=== PATIENT | male | born 1960 | race Caucasian/White ===

== ENCOUNTER → 2016-04-30 | Outpatient (CLI) | payer OTHER ==
[2016-04-30 15:09] LABS: BASO % 0.9 %; BASO ABS # 0.05 K/uL (0-0.2); COMPLETE YES; EOS % 2.2 %; HEMATOCRIT 46.1 % (42-52); IG% 0.5 %; LYMPH % 31.1 %; LYMPH ABS # 1.81 K/uL (1.2-3.4); MEAN CELL VOLUME 88.3 fL (80-100); MEAN CORPUSCULAR HEMOGLOBIN 31.2 pg (25-34); MEAN CORPUSCULAR HGB CONC 35.4 g/dl (32-36); MEAN PLATELET VOLUME 11.1 fL (7.4-10.4); MONO % 6.7 %; NEUT % 58.6 %; PLATELET COUNT 230 K/uL (130-400); RED BLOOD COUNT 5.22 M/uL (4.7-6.1); WHITE BLOOD COUNT 5.82 K/uL (4.8-10.8)
[2016-04-30 15:18] LABS: ALT/SGPT 62 U/L (12-78); AST/SGOT 38 U/L (15-37); BLOOD UREA NITROGEN 14 mg/dl (7-18); BUN/CREATININE RATIO 14.2 (10-20); CALCIUM 8.5 mg/dl (8.5-10.1); CARBON DIOXIDE 31 mmol/L (21-32); CHLORIDE 100 mmol/L (98-107); GLUCOSE 102 mg/dl (70-99); POTASSIUM 4.7 mmol/L (3.5-5.1); SODIUM 138 mmol/L (136-145)
[2016-04-30 15:27] LABS: ALB/GLOB RATIO 1.4 (0.9-2); ALKALINE PHOSPHATASE 67 U/L (45-117); CHOLESTEROL 190 mg/dl (0-200); CHOLESTEROL/HDL RATIO 4.2; HDL CHOLESTEROL 45 mg/dl; THYROID STIMULATING HORMONE 0.191 uIu/ml (0.300-4.500); TRIGLYCERIDES 234 mg/dl (0-150); VERY LOW DENSITY LIPOPROT CALC 47 mg/dl
[2016-05-01 07:35] LABS: ESTIMATED AVERAGE GLUCOSE 126 mg/dl; HA1C FLAG Normal (Normal)
== END | disposition home or self-care (01) ==
LOC: C.LABSPEC 14:45
PROVIDERS: ATTEND Internal Medicine
DX: I10 Essential (primary) hypertension (principal); E78.5 Hyperlipidemia, unspecified; R73.9 Hyperglycemia, unspecified; E03.9 Hypothyroidism, unspecified; R53.83 Other fatigue

== ENCOUNTER → 2016-06-25 | Outpatient (CLI) | payer OTHER ==
[~2016-06-25] VITALS: Ht 188 cm; Wt 121.6 kg
[2016-06-25 12:28] VITALS: BP 138/88; PULSE 57; Ht 188 cm; Wt 121.6 kg
== END | disposition home or self-care (01) ==
LOC: C.NEUR 11:50
PROVIDERS: ATTEND Physician Assistant Medical
DX: R40.0 Somnolence (principal); R06.83 Snoring; G47.8 Other sleep disorders

== ENCOUNTER → 2016-07-08 | Outpatient (CLI) | payer OTHER ==
--- NOTE | 2016-07-12 08:53 | POLYSOMNOGRAPH REPORT ---
CLINICAL DATA: A 56-year-old male with BMI of 34.[address] Watkins, Lakshmi Cheng and myself for evaluation of symptoms of snoring and witnessed apnea. He is tired, does not feel rested in the morning and is unable to sleep more than 4-5 hours per night. On the evening of 07/08/2016, a home sleep apnea was performed using a [employer] type 3 monitor. RECORDING RESULTS: Total recording time was 10 hours. The patient's monitoring time and estimated sleep time was 7.6 hours. RESPIRATORY DATA: Moderate sleep apnea was documented. The CEHSTER was 22.2. There were 14 obstructive and 1 central apneic episode. There were 153 hypopneic episodes. The longest respiratory event recorded was 56 seconds. OXIMETRY DATA: Nocturnal hypoxemia was seen. Oxygen abby was 76%. Mean saturation was 90%. Time below 89% was 132 minutes. HEART RATE DATA: Heart rates ranged from 54 to 65 beats per minute. SNORING DATA: Snoring was recorded throughout the night. IMPRESSION: Moderate sleep apnea/hypopnea with nocturnal hypoxemia. RECOMMENDATIONS: The patient may benefit from a repeat sleep study with CPAP or use of an oral appliance. MTDD
== END | disposition home or self-care (01) ==
LOC: C.NEUR 10:21
PROVIDERS: ATTEND Physician Assistant Medical
DX: R40.0 Somnolence (principal); R06.83 Snoring; G47.8 Other sleep disorders

== ENCOUNTER → 2016-10-22 | Outpatient (CLI) | payer OTHER ==
--- NOTE | 2016-10-23 06:19 | PAP/PSG TECHNICIAN REPORT ---
[facility] Epidemiology Internship Polysomnogram Report Study name: None Report date: 10/23/2016 Study date: 10/22/2016 Referring Physician: Lakshmi Cheng PA-C Name: FANY HUNG Interpreting Physician: Emeterio Short M.D. Date of : 1960 Epidemiology Internship: Estefania Valdes RPSGT. Sex: Male Age: 56 Study Type: PSG PAP Weight: 269 lbs 16.5 in Height: 56 years, Height 6' 2" Neck Circum: BMI: 34.53 Medications: ATENOLOL 50 MG, ATORVASTATIN 10 MG, LATANOPROST 0.005% OPH SOLN, LEVOTHYROXINE 175 MCG, OMEPRAZOLE 20 MG Patient History 56 yr-old male here for a new CPAP treatment study. He was found to be positive for VIGNESH via a home sleep study. His AHI was 22.2. He chose a John FX nasal pillows mask size large from [employer]. The test was started on room air and 4 CMH2O. ETCO2 testing was not utilized during this study. Room 1 Parameters Monitored NPSG: E1-M2, E2-M1, Fp1-M2, Fp2-M1, F3-M2, F4-M2, F4-M1, C3-M2, C4-M2, C4-M1, O1-M2, O2-M2, O2-M1, T3-M2, T4-M1, P3-M2, P4-M1, CHIN1, CHIN2, HR, EKG, Legs, PFLOW, SNOR, FLOW, CFLOW, Tidal Volume, THOR, ABDO, SpO2, PLTH, CPRESS, ETCO2 Wave, ETCO2, pH Sleep Architecture Sleep Stages Time at Lights Off 10:17:37 PM STAGES Time (min.) TST (%) Time at Lights On 5:40:07 AM Wake 156.0 -- Total Recording Time (TRT) 442.50 min. N1 45.5 16 Total Sleep Period (TSP) 431.5 min. N2 171.5 60 Total Sleep Time (TST) 286.5min. N3 0.0 0 Awake Time 156.0 min. REM 69.5 24 Wake after Sleep Onset 147.0 min. Sleep Efficiency (SE) 65 % Sleep Onset Latency (ELISA) 9.0 min. Number of Stage 1 Shifts None Awakenings 31 Stage Changes 117 Number of REM periods 7 REM 69.5 24 REM Latency 120.5 min. NREM 217.0 76 Body Position Analysis Supine Right Left Side Prone Vertical Total Sleep Time (min.) 89.8 185.0 100.0 285.00 0.0 0.0 Total Sleep Time (%) 1% 65% 35% 99 0% N/A% Total Sleep Time REM (min.) 0.0 60.5 9.0 None 0.0 0.0 Total Sleep Time NREM (min.) 1.5 124.5 91.0 None 0.0 0.0 Intermittent Wake (min.) 88.3 45.3 22.4 None 0.0 0.0 Total Sleep Period (%) 19% None None None None None Arousals Myoclonus (PLM) * Events Count Index Events Count Index Spontaneous 33 7 Events Awake (PLMW) 199 76.5 Respiratory 11 2.5 Events Asleep w/ Arousal (PLMA) 36 7.5 PLM 36 8 Events Asleep w/o Arousal (PLMS) 323 67.6 Snoring 0 0 Total Asleep 359 75.2 Total 80 17 Total 558 76 Respiratory Analysis * CA OA MA CH H RERA Total Count 0 0 0 0 25 2 25 Index 0.0 0.0 0.0 0 5.2 0 5.7 Mean Duration 0.0 0.0 0.0 0.00 18.5 16.1 18.3 Longest Duration 0.0 0.0 0.0 0.00 0.0 16.6 26.6 Respiratory Event Summary Total Supine ~Supine Right Left Prone REM NREM Apneas Count 0 0 0 0 0 N/A 0 0 Index 0.0 0 0 0.0 0.0 N/A 0 0 Hypopneas (4% Desat) Count 25 1 24 12 12 N/A 9 16 Index 5.2 40.0 5 3.9 7.2 N/A 7.8 4.4 Apneas & All Hypopneas Count 25 1 24 12 12 N/A 9 16 Index 5.2 40 5 4 7 N/A 7.8 4.4 Respiratory Events (Aluminum Sheet Cutter+All Hyp+RERA) Count 25 1 26 13 13 N/A 9 16 Index 5.7 40 5 4.2 7.8 N/A 8.6 4.7 Respiratory Related Arousal Count 11 1 11 7 4 N/A 2 10 Index 2.5 40 2 2 2 N/A 2 3 Snoring Analysis Supine Right Left Prone REM NREM Total Snore duration 1.2 min Snores count 0 6 12 N/A 4 14 18 Snore mean duration 4.0 Sec Snores index 0 2 7 N/A 3.5 3.9 3.8 TST with snoring (%) 0.4% Desaturation Event Summary: Minimum %SpO2 Event Count Mean/Min/Max Duration(sec.) Desaturation Index % Time In Bed > 90 62 27.7 / 5.3 / 58.3 8.9 96.8 86 - 90 2 16.0 / 15.8 / 16.3 8.8 3.2 81 - 85 0 N/A 0.0 0.0 76 - 80 0 N/A 0.0 0.0 71 - 75 0 N/A 0.0 0.0 66 - 70 0 N/A 0.0 0.0 61 - 65 0 N/A 0.0 0.0 56 - 60 0 N/A 0.0 0.0 51 - 55 0 N/A 0.0 0.0 < 50 0 N/A 0.0 0.0 Total REM NREM Awake <50% 0.0 min. 0.0 min. 0.0 min. 0.0 min. 51 - 60% 0.0 min. 0.0 min. 0.0 min. 0.0 min. 61 - 70% 0.0 min. 0.0 min. 0.0 min. 0.0 min. 71 - 80% 0.0 min. 0.0 min. 0.0 min. 0.0 min. 81 - 90% 13.9 min. 5.6 min. 4.2 min. 4.0 min. 91 - 100% 416.8 min. 63.8 min. 212.3 min. 140.8 min. Average 94 93 94 95 Minimum SpO2 79 87 88 79 Desaturation Event Index 8.4 9.5 6.6 11.2 # Desat. Events below 89% 7 2 2 3 Time(%) with Saturation below 89% 0.3 0.1 0.0 0.2 Time(min.) with Saturation below 89% 1.3 0.4 0.2 0.7 Time (mins) REM (mins) NREM (mins) % of TST SpO2 Below 90% 16 8 N8 1.1 SpO2 Below 88% 1 0 0 0 Heart Rate Analysis Min (bpm) Max (bpm) Average (bpm) Awake 47 83 59 NREM 44 127 54 REM 47 64 54 Overall 44 127 54 Supplemental O2 Values Minimum O2 level: None Value Start Time End Time Epidemiology Internship Comments Mr. Hung slept in the right, left, and supine positions. No cardiac arrhythmias were noted. PLMs were noted throughout the study. No bruxism noted. CPAP was initiated at +4 CMH2O and up-titrated to a level of +8 CMH2O, Cflex 2. A John FX nasal pillows mask size large from [employer] [facility] was used during titration He awoke to use the restroom two times during the night. Mr. Hung stated that he is unsure of how he slept. The final report will be interpreted and signed by a sleep physician. The completed physician report will then be placed in the patient medical record. Therapy Event: Therapy (cm H20) 4 5 7 8 Total Time at Pressure (min.) 95.8 101.6 199.1 46.0 TST at Pressure (min.) 13.8 80.6 149.6 42.5 # Periods 1 1 1 1 Sleep Onset (min.) 9.0 0.0 0.0 0.0 REM Onset (min.) N/A 33.7 2.6 22.0 Sleep Efficiency % 14 79 75 92 Wakefulness (%) 85.6 20.7 24.9 7.6 Wakefulness (min.) 82.0 21.0 49.5 3.5 NREM 1 (%) 5.2 9.4 12.1 15.2 NREM 1 (min.) 5.0 9.5 24.0 7.0 NREM 2 (%) 9.2 67.0 37.7 42.4 NREM 2 (min.) 8.8 68.1 75.1 19.5 NREM 3 (%) 0.0 0.0 0.0 0.0 NREM 3 (min.) 0.0 0.0 0.0 0.0 REM (%) 0.0 3.0 25.4 34.8 REM (min.) 0.0 3.0 50.5 16.0 # Arousals 8 26 38 8 Arousal Index 34.7 19.4 15.2 11.3 # Snore 1 10 6 1 Snore Index 4.3 7.4 2.4 1.4 AHI 17.3 7.4 4.0 1.4 AHI Supine 0.0 N/A 60.0 N/A AHI Non-Supine 18.0 7.4 3.6 1.4 NREM AHI 17.3 7.0 1.8 0.0 REM AHI N/A 20.0 8.3 3.8 RDI 17.3 8.2 4.4 1.4 # Obstructive 0 0 0 0 # Central Ap 0 0 0 0 # Mixed 0 0 0 0 # Hypopneas 4 10 10 1 RERAS 0 1 1 0 Total Respiratory Events 4 11 11 1 Time Below SpO2 89.00% (min.) 0.0 0.4 0.2 0.0 Mean NREM SpO2 (%) 92 93 94 95 Mean REM SpO2 (%) N/A 91 92 94 Mean Sleep SpO2 (%) 92 93 93 95 Min NREM SpO2 (%) 88 88 89 91 Min REM SpO2 (%) N/A 87 88 91 Position Supine (min.) 0.5 0.0 1.0 0.0 Position Non-supine (min.) 13.3 80.6 148.6 42.5 LM Index Sleep 26.0 125.1 48.9 88.9 LM Index NREM 26.0 127.6 69.6 115.4 LM Index REM N/A 60.0 8.3 45.0 Mean Heart Rate (bpm) 57 55 54 52 Min Heart Rate (bpm) 52 50 44 45
--- NOTE | 2016-10-23 16:59 | POLYSOMNOGRAPH REPORT ---
CLINICAL DATA: A 56-year-old male with BMI of 34.5 referred by Lakshmi Cheng, myself and Dr. Watkins for a CPAP titration study. He was having problems with snoring, fatigue, and witnessed apnea. He had a home sleep apnea test which showed moderate sleep apnea with an CHESTER of 22.2. He used a John FX nasal pillow size large from [employer] during this study. SLEEP ARCHITECTURE: Total recording time was 442.5 minutes. Total sleep period was 431.5 minutes. Total sleep time was 286.5 minutes divided between 217 minutes of non-REM sleep and 69.5 minutes of REM sleep. Sleep onset latency was 9 minutes. REM latency was 120.5 minutes. Sleep efficiency was 65%. Wake after sleep onset was elevated at 147 minutes. Sleep consisted of stage N1 16%, stage N1 60%, and REM 24%. AROUSAL DATA: Eighty arousals were recorded for an index of 17 per hour. Thirty-two were spontaneous arousals. Thirty-six occurred due to PLMs. PLM DATA: Severely elevated limb movements during sleep were noted. There were 359 limb movements during sleep noted for an index of 75.2 per hour with arousal index of 7.5 per hour. RESPIRATORY DATA: The AHI was 5.2. There were 25 hypopneas with a mean duration of 18.5 seconds. OXIMETRY DATA: Very transient hypoxemia was seen. Oxygen abby was 87% during REM. The mean saturation was 94%. Time below 88% was 1 minute. EKG: Heart rates ranged from 44-127 beats per minute. No arrhythmias were noted. CHIPS SCREEN TENDER'S COMMENTS AND TREATMENT SUMMARY: The patient slept in the right, left, and supine positions. PLMs were noted throughout this study. CPAP was initiated using a John FX nasal pillows size large from [employer]. The patient was titrated up to 8 cm of water pressure, C-Flex 2. At this final pressure, he slept for 42.5 minutes with an AHI of 1.4. IMPRESSION: Moderate sleep apnea/hypopnea corrected with CPAP 8 cm of water pressure, C-Flex setting #2 utilizing a John FX nasal pillows mask size large from [employer]. The patient continued to have PLMD in spite of treatment. RECOMMENDATIONS: The patient should be started on the above noted treatment regimen and seen back in followup within 90 days to document efficacy and compliance. If he continues to have sleep issues, consideration of treatment for PLMD could be considered. MTDD
== END | disposition home or self-care (01) ==
LOC: C.NEUR 21:00
PROVIDERS: ATTEND Internal Medicine Pulmonary Disease
DX: G47.33 Obstructive sleep apnea (adult) (pediatric) (principal)

== ENCOUNTER → 2016-10-29 | Outpatient (CLI) | payer OTHER ==
[2016-10-29 13:07] LABS: ESTIMATED AVERAGE GLUCOSE 126 mg/dl; HA1C FLAG Normal (Normal)
[2016-10-29 13:11] LABS: BLOOD UREA NITROGEN 16 mg/dl (7-18); BUN/CREATININE RATIO 16.3 (10-20); CALCIUM 8.2 mg/dl (8.5-10.1); CARBON DIOXIDE 28 mmol/L (21-32); CHLORIDE 104 mmol/L (98-107); CHOLESTEROL 153 mg/dl (0-200); GLUCOSE 105 mg/dl (70-99); POTASSIUM 4.3 mmol/L (3.5-5.1); SODIUM 137 mmol/L (136-145); TRIGLYCERIDES 153 mg/dl (0-150); VERY LOW DENSITY LIPOPROT CALC 31 mg/dl
[2016-10-29 13:21] LABS: CHOLESTEROL/HDL RATIO 3.3; HDL CHOLESTEROL 47 mg/dl
== END | disposition home or self-care (01) ==
LOC: C.LABSPEC 12:21
PROVIDERS: ATTEND Internal Medicine
DX: E03.9 Hypothyroidism, unspecified (principal); E78.5 Hyperlipidemia, unspecified; R73.9 Hyperglycemia, unspecified

== ENCOUNTER → 2017-05-01 | Outpatient (CLI) | payer OTHER ==
[2017-05-01 13:53] LABS: BASO % 1.1 %; BASO ABS # 0.07 K/uL (0-0.2); EOS % 2.6 %; EOS ABS # 0.16 K/uL (0-0.5); HEMATOCRIT 46.2 % (42-52); HEMOGLOBIN 16.2 g/dL (14.0-18.0); IG# 0.03 K/uL (0.00-0.02); LYMPH % 27.8 %; LYMPH ABS # 1.72 K/uL (1.2-3.4); MEAN CELL VOLUME 88.7 fL (80-100); MEAN CORPUSCULAR HEMOGLOBIN 31.1 pg (25-34); MEAN CORPUSCULAR HGB CONC 35.1 g/dl (32-36); MEAN PLATELET VOLUME 11.1 fL (7.4-10.4); MONO % 8.3 %; MONO ABS # 0.51 K/uL (0.11-0.59); NEUT % 59.7 %; NEUT ABS # 3.69 K/uL (1.4-6.5); PLATELET COUNT 218 K/uL (130-400); WHITE BLOOD COUNT 6.18 K/uL (4.8-10.8)
[2017-05-01 14:15] LABS: ALT/SGPT 72 U/L (12-78); AST/SGOT 42 U/L (15-37); BLOOD UREA NITROGEN 14 mg/dl (7-18); CALCIUM 8.4 mg/dl (8.5-10.1); CARBON DIOXIDE 25 mmol/L (21-32); CREATININE 0.92 mg/dl (0.60-1.40); GLUCOSE 111 mg/dl (70-99); POTASSIUM 4.5 mmol/L (3.5-5.1); SODIUM 134 mmol/L (136-145)
[2017-05-01 14:21] LABS: ALKALINE PHOSPHATASE 67 U/L (45-117); TOTAL PROTEIN 7.9 gm/dl (6.4-8.2)
== END | disposition home or self-care (01) ==
LOC: C.LABSPEC 12:25
PROVIDERS: ATTEND Internal Medicine
DX: E03.9 Hypothyroidism, unspecified (principal); E78.5 Hyperlipidemia, unspecified; C73 Malignant neoplasm of thyroid gland; Z11.59 Encounter for screening for other viral diseases

== ENCOUNTER → 2017-05-06 | Outpatient (CLI) | payer OTHER ==
[2017-05-08 14:32] LABS: FECAL OCCULT BLOOD #1 NEGATIVE (NEGATIVE); FECAL OCCULT BLOOD #2 NEGATIVE (NEGATIVE); FECAL OCCULT BLOOD #3 NEGATIVE (NEGATIVE)
== END | disposition home or self-care (01) ==
LOC: C.LABSPEC 13:20
PROVIDERS: ATTEND Internal Medicine
DX: Z12.11 Encounter for screening for malignant neoplasm of colon (principal)

== ENCOUNTER → 2017-11-03 | Outpatient (CLI) | payer OTHER ==
[2017-11-03 15:04] LABS: ALBUMIN 4.2 gm/dl (3.4-5.0); ALKALINE PHOSPHATASE 61 U/L (45-117); ALT/SGPT 36 U/L (12-78); AST/SGOT 20 U/L (15-37); BLOOD UREA NITROGEN 20 mg/dl (7-18); CALCIUM 8.5 mg/dl (8.5-10.1); CARBON DIOXIDE 29 mmol/L (21-32); CHOLESTEROL 129 mg/dl (0-200); CREATININE 0.91 mg/dl (0.60-1.40); GLUCOSE 96 mg/dl (70-99); LDL CHOLESTEROL (DIRECT) 83 mg/dl; POTASSIUM 4.4 mmol/L (3.5-5.1); SODIUM 137 mmol/L (136-145); TOTAL PROTEIN 7.5 gm/dl (6.4-8.2)
[2017-11-04 06:28] LABS: HEMOGLOBIN A1C 5.9 % (4.5-5.6)
== END | disposition home or self-care (01) ==
LOC: C.LABSPEC 13:43
PROVIDERS: ATTEND Internal Medicine
DX: R73.9 Hyperglycemia, unspecified (principal); E78.5 Hyperlipidemia, unspecified; I10 Essential (primary) hypertension; E03.9 Hypothyroidism, unspecified